=== PATIENT | male | born 2000 | race Caucasian/White ===

== ENCOUNTER 2022-10-30 02:10 | Emergency (ER) | payer OTHER ==
[~2022-10-30] VITALS: Ht 170.2 cm; Wt 55.8 kg
[2022-10-30 02:20] VITALS: BP 146/93
--- NOTE | 2022-10-30 02:25 | NUR ---
PT TO BED 11.
[2022-10-30] MEDS ORDERED: ONDANSETRON 4 MG ODT PO ONE (02:30)
--- NOTE | 2022-10-30 02:30 | NUR ---
Dr. Matos assessing patient.
[2022-10-30] MEDS ORDERED: ONDA8TAB87 PO ×2 (02:43→03:54)
--- NOTE | 2022-10-30 02:50 | NUR ---
Patient lying in bed, A/Ox4, chest rise and fall symmetrical, no s/s of distress
[2022-10-30 03:00] VITALS: BP 118/74
== END 2022-10-30 03:05 | disposition home or self-care (01) ==
LOC: MED 02:10
DX: R11.2 Nausea with vomiting, unspecified (principal); F12.90 Cannabis use, unspecified, uncomplicated; Z72.89 Other problems related to lifestyle
CPT/HCPCS: 99283; Q0162